=== PATIENT | male | born 1945 | race Caucasian/White ===

== ENCOUNTER 2016-11-23 07:11 | Day surgery (SDC) | payer MEDICARE, OTHER ==
--- NOTE | ~2016-11-23 | EGD ---
EGD REPORT [facility] [address] [address] NAME: RUSSEL SORTO : [birth year] STATUS : REG [facility] PAT#: [id number] AGE: 71 ADM/REG DATE : 11/23/16 MR#: [id number] REPORT SERV DATE: 11/23/16 DICTATED BY: DATE: REPORT STATUS : Draft TRANSCRIBED BY: [employer] DATE: 11/23/16 [facility] Patient Name: Russel Sorto Date of : 1945 Attending MD: WU GURROLA MD Procedure Date No Time: 11/23/2016 Procedure: Upper GI endoscopy Indications: Iron deficiency anemia Referring MD: ANNA GRAVES MD Medicines: Monitored Anesthesia Care Complications: No immediate complications. Procedure: Pre-Anesthesia Assessment: - ASA Grade Assessment: III - A patient with severe systemic disease. After obtaining informed consent, the endoscope was passed under direct vision. Throughout the procedure, the patient's blood pressure, pulse, and oxygen saturations were monitored continuously. The GIF H190 [id number] was introduced through the mouth, and advanced to the third part of duodenum. The upper GI endoscopy was accomplished without difficulty. The patient tolerated the procedure well. Findings: The Z-line was irregular and was found 40 cm from the incisors. A small hiatus hernia was present. No other significant abnormalities were identified in a careful examination of the esophagus. There is no endoscopic evidence of areas of erosion, ulcerations or varices in the entire esophagus. A postoperative fistula was found on the lesser curvature of the stomach consistent with previous, failed surgery. A single large, villous sessile polyp with no bleeding was found in the prepyloric along the greater curvature region of the stomach. Superficial ulceration was noted. Biopsies were taken with a cold forceps for histology. No other significant abnormalities were identified in a careful examination of the stomach. There is no endoscopic evidence of ulceration or varices in the entire examined stomach. The examined duodenum was normal. There is no endoscopic evidence of inflammation, mucosal abnormalities or ulceration in the entire examined duodenum. The cardia and gastric fundus were normal on retroflexion. EGD REPORT [address] [address] NAME: RUSSEL SORTO : [birth year] STATUS : REG [facility] PAT#: [id number] AGE: 71 ADM/REG DATE : 11/23/16 MR#: [id number] REPORT SERV DATE: 11/23/16 DICTATED BY: DATE: REPORT STATUS : Draft TRANSCRIBED BY: [employer] DATE: 11/23/16 Impression: - Z-line irregular, 40 cm from the incisors. - Hiatus hernia. - Gastric fistula. - A single gastric polyp. Biopsied. - Normal examined duodenum. Recommendation: - Patient has a contact number available for emergencies. The signs and symptoms of potential delayed complications were discussed with the patient. Return to normal activities tomorrow. Written discharge instructions were provided to the patient. - Discharge patient to home. - Continue present medications. - Await pathology results. - Referral to Dr. Hnies for EUS and removal. Procedure Code(s): --- Professional --- 85774, Esophagogastroduodenoscopy, flexible, transoral; with biopsy, single or multiple Diagnosis Code(s): --- Professional --- K22.8, Other specified diseases of esophagus K44.9, Diaphragmatic hernia without obstruction or gangrene K31.6, Fistula of stomach and duodenum K31.7, Polyp of stomach and duodenum D50.9, Iron deficiency anemia, unspecified CPT copyright 2013 [employer]. All rights reserved. The codes documented in this report are preliminary and upon white goods appliance tech review may be revised to meet current compliance requirements. WU GURROLA MD 11/23/2016 9:29 AM This report has been signed electronically. Number of Addenda: 0 Note Initiated On: 11/23/2016 8:35 AM Scope Withdrawal Time 0 hours 0 minutes 0 seconds [id number] [id number]
--- NOTE | ~2016-11-23 | EGD ---
EGD REPORT [facility] [address] [address] NAME: RUSSEL SORTO : [birth year] STATUS : REG [facility]#: [id number] AGE: 71 ADM/REG DATE : 11/23/16 MR#: [id number] REPORT SERV DATE: 11/23/16 DICTATED BY: DATE: REPORT STATUS : Draft TRANSCRIBED BY: [employer] DATE: 11/23/16 [facility] Patient Name: Russel Sorto Date of : 1945 Attending MD: WU GURROLA MD Procedure Date No Time: 11/23/2016 Procedure: Colonoscopy Indications: High risk colon cancer surveillance: Personal history adenoma >= 10 mm in size, High risk colon CA surveillance: Personal history multiple (3 or more) adenomas Referring MD: ANNA GRAVES MD Medicines: Monitored Anesthesia Care Complications: No immediate complications. Procedure: Pre-Anesthesia Assessment: - ASA Grade Assessment: III - A patient with severe systemic disease. After I obtained informed consent, the scope was passed under direct vision. Throughout the procedure, the patient's blood pressure, pulse, and oxygen saturations were monitored continuously. The PCF [id number] was introduced through the anus and advanced to the cecum, identified by appendiceal orifice and ileocecal valve. The colonoscopy was performed without difficulty. The patient tolerated the procedure well. The quality of the bowel preparation was good. Findings: The perianal and digital rectal examinations were normal. Multiple sessile polyps were found in the ascending colon. The polyps were 4 to 12 mm in size. These diminutive polyps were removed with cold forceps while polyps over 5 mm were removed with a cold snare. Resection and retrieval were complete. Multiple sessile polyps were found in the transverse colon. The polyps were 4 to 10 mm in size. These polyps were removed with a cold forceps and cold snare depending upon size. Resection and retrieval were complete. Three sessile polyps were found in the descending colon. The polyps were diminutive in size. These polyps were removed with a cold biopsy forceps though cold snare was utilized for a 6 mm polyp. Resection and retrieval were complete. Multiple small and large-mouthed diverticula were found in the sigmoid colon. No other significant abnormalities were identified in a careful examination of the remainder of the colon. EGD REPORT [place] [id number] [facility] [place]. [address] NAME: RUSSEL SORTO : [birth year] STATUS : REG [facility]#: [id number] AGE: 71 ADM/REG DATE : 11/23/16 MR#: [id number] REPORT SERV DATE: 11/23/16 DICTATED BY: DATE: REPORT STATUS : Draft TRANSCRIBED BY: [employer] DATE: 11/23/16 There is no endoscopic evidence of inflammation, mass, ulcerations or angioectasia in the entire colon. No additional abnormalities were found on retroflexion. Impression: - Multiple 4 to 12 mm polyps in the ascending colon. Resected and retrieved. - Multiple 4 to 10 mm polyps in the transverse colon. Resected and retrieved. - Three diminutive polyps in the descending colon. Resected and retrieved. - Diverticulosis in the sigmoid colon. Recommendation: - Patient has a contact number available for emergencies. The signs and symptoms of potential delayed complications were discussed with the patient. Return to normal activities tomorrow. Written discharge instructions were provided to the patient. - High fiber diet. - Discharge patient to home. - Continue present medications. - Await pathology results. - Repeat colonoscopy in 2 years for surveillance. Procedure Code(s): --- Professional --- 26222, Colonoscopy, flexible, proximal to splenic flexure; with removal of tumor(s), polyp(s), or other lesion(s) by snare technique 51282, 59, Colonoscopy, flexible, proximal to splenic flexure; with biopsy, single or multiple Diagnosis Code(s): --- Professional --- D12.4, Benign neoplasm of descending colon D12.3, Benign neoplasm of transverse colon D12.2, Benign neoplasm of ascending colon K57.30, Diverticulosis of large intestine without perforation or abscess without bleeding Z86.010, Personal history of colonic polyps CPT copyright 2013 [employer]. All rights reserved. The codes documented in this report are preliminary and upon social media marketing specialist review may be revised to meet current compliance requirements. WU GURROLA MD 11/23/2016 9:35 AM EGD REPORT [facility] [address] [address] NAME: RUSSEL SORTO : [birth year] STATUS : REG [facility] PAT#: [id number] AGE: 71 ADM/REG DATE : 11/23/16 MR#: [id number] REPORT SERV DATE: 11/23/16 DICTATED BY: DATE: REPORT STATUS : Draft TRANSCRIBED BY: [employer] DATE: 11/23/16 This report has been signed electronically. Number of Addenda: 0 Note Initiated On: 11/23/2016 8:31 AM Scope Withdrawal Time 0 hours 34 minutes 24 seconds [address] [id number]
[~2016-11-23 07:11] MED LIST: ACET500CAP PO; APRES25 PO; ASAB PO; AUG875 PO; BACDS PO; CARTIA XT180 MG/24 PO; CARTIA XT240 MG/24 PO; CAT1 PO; CELEXA20 PO; CORDARONE PO; COREG6 PO; COZ50 PO; CRESTOR10 PO; EFFEXOR XR150 MG PO; FENOGLIDE120 MG PO; HALF81 PO; HUMALIN R; HUMALOG SC; HUMAPUMP SC; HUMULIN INSULIN PUMP SQ; HUMULIN R1 ML SC; IMDUR30 PO; INDO50 PO; KDUR10 PO; L40 PO; LANTUS SC; LEVSINTAB PO; LEXAPRO10 PO; LIPITOR20 PO; LISINOPRIL40 MG PO; LOFIB160 PO; LORCET PO; LORTAB10 PO; LOVAZA1 GM PO; MIRAPEX5 PO; NEUR400 PO; NORCO1 TAB PO; NORV10 PO; NOVREGPUMP; PLAVIX PO; PRAVACHOL40 MG PO; PRILO PO; PRILOSEC40 MG PO; PROTONIX PO; SYN.05 PO; SYN075 PO; VITAMIN D1000 UNI1 PO; VITC500 PO; VYTORIN 10/80 T1 TAB PO; ZOCOR20 PO
[2017-04-05] MEDS ORDERED: PROTONIX PO (23:13)
[2017-04-05] MEDS ORDERED: NORV10 PO (23:13)
[2017-04-05] MEDS ORDERED: PLAVIX PO (23:14)
[2017-04-05] MEDS ORDERED: CAT1 PO (23:15)
[2017-04-05] MEDS ORDERED: COREG6 PO (23:15)
[2017-04-05] MEDS ORDERED: L40 PO (23:15)
[2017-04-05] MEDS ORDERED: NEUR400 PO (23:16)
[2017-04-05] MEDS ORDERED: CELEXA20 PO (23:16)
[2017-04-05] MEDS ORDERED: NORCO1 TAB PO (23:18)
[2017-04-05] MEDS ORDERED: SYN.05 PO (23:19)
[2017-04-05] MEDS ORDERED: INSULIN REGULAR (23:24)
[2017-04-05] MEDS ORDERED: IMDUR30 PO (23:28)
[2017-04-05] MEDS ORDERED: MIRAPEX5 PO (23:29)
[2017-04-05] MEDS ORDERED: APRES25 PO (23:30)
[2017-04-05] MEDS ORDERED: COZ50 PO (23:31)
== END 2016-11-23 23:59 | disposition home health service (06) ==
LOC: DMU 07:11
PROVIDERS: Internal Medicine Gastroenterology
PROC: 0DBL8ZZ Excision of Transverse Colon, Via Natural or Artificial Opening Endoscopic (ICD-10-PCS; 2016-11-23)
PROC: 0DBK8ZX Excision of Ascending Colon, Via Natural or Artificial Opening Endoscopic, Diagnostic (ICD-10-PCS; 2016-11-23)
PROC: 0DBM8ZX Excision of Descending Colon, Via Natural or Artificial Opening Endoscopic, Diagnostic (ICD-10-PCS; 2016-11-23)
PROC: 0DBL8ZX Excision of Transverse Colon, Via Natural or Artificial Opening Endoscopic, Diagnostic (ICD-10-PCS; 2016-11-23)
PROC: 0DB78ZX Excision of Stomach, Pylorus, Via Natural or Artificial Opening Endoscopic, Diagnostic (ICD-10-PCS; principal; 2016-11-23 10:30)
PROC: 0DBK8ZZ Excision of Ascending Colon, Via Natural or Artificial Opening Endoscopic (ICD-10-PCS; 2016-11-23 10:30)
PROC: 0DBM8ZZ Excision of Descending Colon, Via Natural or Artificial Opening Endoscopic (ICD-10-PCS; 2016-11-23 10:30)
DX: Z12.11 Encounter for screening for malignant neoplasm of colon (principal); D12.2 Benign neoplasm of ascending colon; D12.3 Benign neoplasm of transverse colon; D12.4 Benign neoplasm of descending colon; K31.7 Polyp of stomach and duodenum; K57.30 Diverticulosis of large intestine without perforation or abscess without bleeding; K25.9 Gastric ulcer, unspecified as acute or chronic, without hemorrhage or perforation; D50.9 Iron deficiency anemia, unspecified; K31.6 Fistula of stomach and duodenum; K22.8 Other specified diseases of esophagus; I25.10 Atherosclerotic heart disease of native coronary artery without angina pectoris; I73.9 Peripheral vascular disease, unspecified; E11.9 Type 2 diabetes mellitus without complications; I11.0 Hypertensive heart disease with heart failure; I50.9 Heart failure, unspecified; E03.9 Hypothyroidism, unspecified; M19.90 Unspecified osteoarthritis, unspecified site; F32.9 Major depressive disorder, single episode, unspecified; K44.9 Diaphragmatic hernia without obstruction or gangrene; E78.00 Pure hypercholesterolemia, unspecified; Z86.010 Personal history of colon polyps; Z95.1 Presence of aortocoronary bypass graft; Z86.73 Personal history of transient ischemic attack (TIA), and cerebral infarction without residual deficits; Z88.8 Allergy status to other drugs, medicaments and biological substances; Z79.82 Long term (current) use of aspirin; Z79.02 Long term (current) use of antithrombotics/antiplatelets; Z79.4 Long term (current) use of insulin; Z79.899 Other long term (current) drug therapy; Z87.891 Personal history of nicotine dependence; Z90.49 Acquired absence of other specified parts of digestive tract; Z98.890 Other specified postprocedural states
CPT/HCPCS: 82962; 88305; 88342